=== PATIENT | female | born 1970 | race Caucasian/White ===

== ENCOUNTER 2016-08-19 12:09 | Emergency (ER) | payer BC, OTHER ==
[~2016-08-19] VITALS: Ht 165.1 cm; Wt 68.0 kg
[2016-08-19] MEDS ORDERED: METF10002 PO (12:18)
[2016-08-19] MEDS ORDERED: GLIM4TAB3 PO (12:18)
--- NOTE | 2016-08-19 12:20 | NUR ---
Pt ambulatoryto bed 3 , dr jones at bedside for exam.
--- NOTE | 2016-08-19 12:30 | NUR ---
Pt dc;ed home.
[2016-08-19 12:31] VITALS: BP 128/74
== END 2016-08-19 12:33 | disposition home or self-care (01) ==
LOC: ER 12:09
DX: J02.9 Acute pharyngitis, unspecified (principal); E11.9 Type 2 diabetes mellitus without complications
CPT/HCPCS: 99283; A4663

== ENCOUNTER 2017-06-02 07:19 | Emergency (ER) | payer BC, OTHER ==
[~2017-06-02] VITALS: Ht 165.1 cm; Wt 67.6 kg
[~2017-06-02 07:19] MED LIST: GLIM4TAB3 PO; METF10002 PO
--- NOTE | 2017-06-02 07:40 | NUR ---
DR PANTOJA AT THE BEDSIDE FOR EVAL AND EXAM.
[2017-06-02] MEDS: ACETAMINOPHEN ES 500 MG TABLET PO ONE (07:46)
[2017-06-02] MEDS: ONDANSETRON ODT 4 MG TAB.RAPDIS SL ONE (07:46)
[2017-06-02 07:51] VITALS: BP 114/88
--- NOTE | 2017-06-02 07:52 | NUR ---
Patient discharged to home in stable conditon. Written and verbal after care instructions given. Patient verbalizes understanding of instructions.
[2017-06-02] MEDS ORDERED: ACETAMINOPHEN ES 500 MG TABLET ONE (07:59)
[2017-06-02] MEDS ORDERED: ONDANSETRON ODT 4 MG TAB.RAPDIS ONE (08:00)
== END 2017-06-02 07:53 | disposition home or self-care (01) ==
LOC: ER 07:19
DX: J11.1 Influenza due to unidentified influenza virus with other respiratory manifestations (principal); R11.2 Nausea with vomiting, unspecified; E11.9 Type 2 diabetes mellitus without complications
CPT/HCPCS: 99283; A4663; Q0162